=== PATIENT | female | born 1965 | race Caucasian/White ===

== ENCOUNTER 2023-03-20 08:02 | Inpatient (IN) | payer BC ==
[~2023-03-20] VITALS: Ht 149.9 cm; Wt 111.5 kg
[~2023-03-20 08:02] MED LIST: ALBUAER3 IN; BUDE1AER4 IN; CALC-134 XX; CARB0.5D8 OP; CETI10TA2 PO; CHOL100067 PO; DULO60CA41 PO; FAMO-68 PO; FLUT1SPR17; GABA-1250 PO; HYDR-4188 OR; LEV75T PO; MONT-8 OR; MULT-195 OR; OXYB5TAB10 PO; PILO5TAB10 PO; ZOFR4T PO; [UNRECOGNIZED DRUG - CODE] EX; [UNRECOGNIZED DRUG - CODE] OP; [UNRECOGNIZED DRUG - CODE] PO
[2023-03-20] MEDS ORDERED: FAMOTIDINE (10MG/ML) 2ML VL IV ONE ×2 (08:29→08:45)
[2023-03-20] MEDS ORDERED: LIDOCAINE 2% (LOCAL ANESTH.) PF 5ml SDV ONE (08:35)
[2023-03-20] MEDS ORDERED: ONDANSETRON HCL 4 MG/2 ML VIAL ONE (08:35)
[2023-03-20] MEDS ORDERED: PROPOFOL 10 MG/ML 20 ML IV ONE ×3 (08:35→11:30)
[2023-03-20] MEDS ORDERED: HYDROmorphone HCL 2 MG/ML VL/or syr ONE (08:35)
[2023-03-20] MEDS ORDERED: HYDROCORTISONE SOD SUCC 100 MG/2ML INJ VIAL IV SCH (08:35)
[2023-03-20] MEDS ORDERED: fentaNYL CITRATE 100 MCG/2 ML VL ONE (08:35)
[2023-03-20] MEDS ORDERED: MIDAZOLAM HCL 2MG/2ML 2ml VIAL (1mg/ml) ONE (08:35)
[2023-03-20] MEDS ORDERED: GLYCOPYRROLATE 0.2 MG/ML 1ML VIAL ONE (08:36)
[2023-03-20] MEDS ORDERED: ePHEDrine SULFATE 50 MG/ML AMP ONE (08:38)
[2023-03-20] MEDS ORDERED: PHENYLEPHRINE HCL 10 MG/ML VL ONE (08:38)
[2023-03-20] MEDS ORDERED: VANCOMYCIN HCL 1000 MG VL ONE (08:39)
[2023-03-20] MEDS ORDERED: HYDROCORTISONE SOD SUCC 100 MG/2ML INJ VIAL IV ONE (09:00)
[2023-03-20] MEDS ORDERED: KETAMINE HCL 10 ML ONE (09:08)
[2023-03-20] MEDS ORDERED: SUCCINYLCHOLINE CHLORIDE 20 MG/ML 10ML VIAL IV ONE (09:11)
[2023-03-20] MEDS ORDERED: NALOXONE HCL 1MG/ML 2ML SYRINGE ONE (12:24)
[2023-03-20] MEDS ORDERED: NITROGLYCERIN 0.4 MG SL TAB SL PRN (12:45)
[2023-03-20] MEDS ORDERED: ACETAMINOPHEN 325 MG TAB PO PRN (12:45)
[2023-03-20] MEDS ORDERED: MORPHINE SULFATE INJ 2 MG/ml SYRG IV PRN (12:45)
[2023-03-20] MEDS ORDERED: HYDROmorphone HCL 2 MG/ML VL/or syr IV PRN (13:15)
[2023-03-20] MEDS ORDERED: ONDANSETRON HCL 4 MG/2 ML VIAL IV PRN (13:15)
[2023-03-20 14:02] LABS: Basophils # (auto) 0.1 10 ^3/uL (0-0.2); Basophils % (auto) 0.9 % (0.0-2.0); Eosinophils # (auto) 0 10 ^3/uL (0-0.8); Eosinophils % (auto) 0.6 % (0.0-7.0); Hematocrit 39.7 % (36.0-46.0); Hemoglobin 13.2 g/dL (12.2-16.2); Lymphocytes # (auto) 0.4 10 ^3/uL (0.4-5.4); Lymphocytes % (auto) 5.1 % (10.0-50.0); Mean Corpuscular Hemoglobin 28.5 pg (28.0-32.0); Mean Corpuscular Hgb Conc. 33.3 g/dL (32.0-36.0); Mean Corpuscular Volume 85.7 fL (80.0-100.0); Monocytes # (auto) 0.1 10 ^3/uL (0-1.3); Monocytes % (auto) 0.8 % (0.0-12.0); Neutrophils # (auto) 7.9 10 ^3/uL (1.6-8.6); Neutrophils % (auto) 92.6 % (37.0-80.0); Nucleated Red Blood Cells % 0.1 %; Red Blood Cells 4.63 10^6/uL (4.0-5.20); Red Cell Distribution Width 13.5 % (11.8-14.3); White Blood Cell 8.5 10^3/uL (4.4-10.8)
[2023-03-20 14:44] LABS: Albumin 3.4 g/dL (3.4-5.0); BUN/Creatinine Ratio 17.2 (10.0-20.0); Calcium 8.2 mg/dL (8.5-10.1); Potassium 4.5 mmol/L (3.5-5.1)
[2023-03-20 14:47] LABS: Bilirubin, Total 0.3 mg/dL (0.2-1.0); Total Protein 6.3 g/dL (6.4-8.2)
[2023-03-20 15:04] VITALS: BP 125/75
[2023-03-20 16:00] VITALS: BP 125/75
[2023-03-20] MEDS: D5W/SOD CHLO 0.9% 1,000 ML IV SCH ×2 (16:12→23:02)
[2023-03-20] MEDS: ceFAZolin 1GM/50ML 50 ML IV SCH ×2 (16:56→22:14)
[2023-03-20] MEDS: CYCLOBENZAPRINE HCL 10 MG TAB PO SCH ×2 (16:56→22:15)
[2023-03-20] MEDS ORDERED: ALBUTEROL SULF 2.5 MG/0.5ML(0.5%) NEB SOLN NEB PRN (17:00)
[2023-03-20] MEDS: HYDROCORTISONE SOD SUCC 100 MG/2ML INJ VIAL IV SCH (18:19)
[2023-03-20] MEDS: ONDANSETRON HCL 4 MG/2 ML VIAL IV PRN (19:03)
[2023-03-20] MEDS: MORPHINE SULFATE INJ 2 MG/ml SYRG IV PRN (19:03)
[2023-03-20 20:22] VITALS: BP 125/75
[2023-03-20 22:00] VITALS: BP 139/85
[2023-03-20] MEDS: MONTELUKAST SODIUM 10 MG TAB PO SCH (22:15)
[2023-03-20] MEDS: DULoxetine HCL 30 MG CAP PO SCH (22:15)
[2023-03-20] MEDS: DOCUSATE SOD 100 MG CAP PO SCH (22:15)
[2023-03-20] MEDS: GABAPENTIN 300 MG CAP PO SCH (22:15)
[2023-03-20] MEDS: FAMOTIDINE 20 MG TAB PO SCH (22:15)
[2023-03-21] MEDS: HYDROCORTISONE SOD SUCC 100 MG/2ML INJ VIAL IV SCH (01:24)
[2023-03-21] MEDS: ONDANSETRON HCL 4 MG/2 ML VIAL IV PRN ×2 (02:16→12:00)
[2023-03-21] MEDS: MORPHINE SULFATE INJ 2 MG/ml SYRG IV PRN (02:18)
[2023-03-21 05:00] VITALS: BP 110/55
[2023-03-21 05:36] LABS: Basophils # (auto) 0 10 ^3/uL (0-0.2); Basophils % (auto) 0.2 % (0.0-2.0); Eosinophils # (auto) 0 10 ^3/uL (0-0.8); Hematocrit 36.7 % (36.0-46.0); Hemoglobin 12.2 g/dL (12.2-16.2); Lymphocytes # (auto) 0.4 10 ^3/uL (0.4-5.4); Lymphocytes % (auto) 4.2 % (10.0-50.0); Mean Corpuscular Hemoglobin 28.4 pg (28.0-32.0); Mean Corpuscular Hgb Conc. 33.1 g/dL (32.0-36.0); Monocytes # (auto) 0.4 10 ^3/uL (0-1.3); Monocytes % (auto) 3.6 % (0.0-12.0); Neutrophils # (auto) 9.2 10 ^3/uL (1.6-8.6); Red Blood Cells 4.27 10^6/uL (4.0-5.20); White Blood Cell 9.9 10^3/uL (4.4-10.8)
[2023-03-21 05:53] LABS: BUN/Creatinine Ratio 16.9 (10.0-20.0); Calcium 7.7 mg/dL (8.5-10.1)
[2023-03-21] MEDS: CYCLOBENZAPRINE HCL 10 MG TAB PO SCH ×3 (06:22→21:38)
[2023-03-21] MEDS: LEVOTHYROXINE SODIUM 25 MCG TAB PO SCH (06:23)
[2023-03-21] MEDS: D5W/SOD CHLO 0.9% 1,000 ML IV SCH (08:45)
[2023-03-21 09:00] VITALS: BP 130/70
[2023-03-21] MEDS ORDERED: DexAMETHasone SOD PHOS 10MG/1ML VIAL INJ IV ONE (11:45)
[2023-03-21] MEDS ORDERED: ALBUTEROL SULF 2.5 MG/0.5ML(0.5%) NEB SOLN NEB PRN ×2 (11:45→13:00)
[2023-03-21] MEDS: GABAPENTIN 300 MG CAP PO SCH ×2 (12:00→21:38)
[2023-03-21] MEDS: DULoxetine HCL 30 MG CAP PO SCH ×2 (12:00→21:38)
[2023-03-21] MEDS: DOCUSATE SOD 100 MG CAP PO SCH ×2 (12:00→21:38)
[2023-03-21] MEDS: hydrOXYchloroQUINE SULFATE 200 MG TAB PO SCH (12:01)
[2023-03-21] MEDS: HYDROcodone-ACET 10/325MG TAB PO PRN ×2 (12:01→20:17)
[2023-03-21] MEDS: FAMOTIDINE 20 MG TAB PO SCH ×2 (12:01→21:38)
[2023-03-21] MEDS ORDERED: ONDANSETRON ODT 4 MG TAB PO PRN (12:15)
[2023-03-21 12:53] VITALS: BP 127/72
[2023-03-21 17:17] VITALS: BP 132/80
[2023-03-21] MEDS: MONTELUKAST SODIUM 10 MG TAB PO SCH (21:38)
[2023-03-21 22:00] VITALS: BP 114/75
[2023-03-21] MEDS: BUDESONIDE (INHALATION) 0.5 MG/2 ML NEB NEB SCH (22:04)
[2023-03-22 05:00] VITALS: BP 141/91
[2023-03-22] MEDS: HYDROcodone-ACET 10/325MG TAB PO PRN (06:11)
[2023-03-22] MEDS: CYCLOBENZAPRINE HCL 10 MG TAB PO SCH (06:11)
[2023-03-22] MEDS: LEVOTHYROXINE SODIUM 25 MCG TAB PO SCH (06:13)
[2023-03-22] MEDS: BUDESONIDE (INHALATION) 0.5 MG/2 ML NEB NEB SCH (06:54)
[2023-03-22] MEDS: FAMOTIDINE 20 MG TAB PO SCH (09:28)
[2023-03-22] MEDS: DULoxetine HCL 30 MG CAP PO SCH (09:28)
[2023-03-22] MEDS: GABAPENTIN 300 MG CAP PO SCH (09:28)
[2023-03-22] MEDS: DOCUSATE SOD 100 MG CAP PO SCH (09:28)
[2023-03-22] MEDS: hydrOXYchloroQUINE SULFATE 200 MG TAB PO SCH (09:28)
[2023-03-22] MEDS ORDERED: HYDR-4902 PO (09:32)
[2023-03-22 12:12] VITALS: BP 140/88
== END 2023-03-22 13:34 | disposition home health service (06) | DRG 472 ==
LOC: SUR 08:02 → TELE 12:37 → TELE-CENTR 14:54
PROVIDERS: ADMIT Orthopaedic Surgery; ATTEND Hospitalist
PROC: 0RG20A0 Fusion of 2 or more Cervical Vertebral Joints with Interbody Fusion Device, Anterior Approach, Anterior Column, Open Approach (ICD-10-PCS; 2023-03-20)
PROC: 0RB30ZZ Excision of Cervical Vertebral Disc, Open Approach (ICD-10-PCS; 2023-03-20)
PROC: 01N10ZZ Release Cervical Nerve, Open Approach (ICD-10-PCS; 2023-03-20)
PROC: 00NW0ZZ Release Cervical Spinal Cord, Open Approach (ICD-10-PCS; 2023-03-20)
PROC: 4A11X4G Monitoring of Peripheral Nervous Electrical Activity, Intraoperative, External Approach (ICD-10-PCS; 2023-03-20)
PROC: 5A09357 Assistance with Respiratory Ventilation, Less than 24 Consecutive Hours, Continuous Positive Airway Pressure (ICD-10-PCS; principal; 2023-03-20 09:16)
PROC: 5A09357 Assistance with Respiratory Ventilation, Less than 24 Consecutive Hours, Continuous Positive Airway Pressure (ICD-10-PCS; 2023-03-22)
DX: M48.02 Spinal stenosis, cervical region (principal); Z68.42 Body mass index [BMI] 45.0-49.9, adult; E03.9 Hypothyroidism, unspecified; M35.00 Sjogren syndrome, unspecified; M79.7 Fibromyalgia; J45.909 Unspecified asthma, uncomplicated; M54.12 Radiculopathy, cervical region; E66.01 Morbid (severe) obesity due to excess calories; Z88.6 Allergy status to analgesic agent; Z88.0 Allergy status to penicillin; Z88.2 Allergy status to sulfonamides; Z79.899 Other long term (current) drug therapy; Z87.891 Personal history of nicotine dependence
CPT/HCPCS: 36415; 72040; 76000; 80048; 80053; 84443; 85025; 86850; 86900; 86901; 94640; 94660; 97110; 97116; 97163; G0378; J0330; J0690; J1100; J2001; J2250; J2405; J2704; J3490; J7042